=== PATIENT | female | born 1960 | race African-American/Black ===

== ENCOUNTER → 2017-02-22 | Outpatient (CLI) | payer MEDICAID, OTHER ==
[~2017-02-22] MED LIST: CYCL1TAB18; TRAZ100T2
== END | disposition home or self-care (01) ==
LOC: Rad HDHVI 08:10
PROVIDERS: ATTEND Internal Medicine Cardiovascular Disease
DX: I73.9 Peripheral vascular disease, unspecified (principal); R07.89 Other chest pain
CPT/HCPCS: 93306

== ENCOUNTER → 2017-02-25 | Outpatient (CLI) | payer MEDICAID ==
[~2017-02-25] VITALS: Ht 152.4 cm; Wt 48.5 kg
== END | disposition home or self-care (01) ==
LOC: Rad HDHVI 10:37
PROVIDERS: ATTEND Internal Medicine Cardiovascular Disease
DX: I73.9 Peripheral vascular disease, unspecified (principal); R07.89 Other chest pain; R11.0 Nausea; R06.02 Shortness of breath; G47.9 Sleep disorder, unspecified
CPT/HCPCS: 78452; 93017; 96374; A9500